=== PATIENT | female | born 1985 | race Caucasian/White ===

== ENCOUNTER → 2020-08-07 17:10 | Outpatient (BNVA) | payer SELFPAY | PROVIDERS: Visit Provider Registered Nurse | DX: F41.9 Anxiety disorder, unspecified (principal); F17.210 Nicotine dependence, cigarettes, uncomplicated | CPT/HCPCS: 80053; 85025 ==

== ENCOUNTER 2021-04-29 21:52 | Emergency (ER) | payer SELFPAY ==
[2021-04-29 21:59] VITALS: BP 113/79; PULSE 100; RESP 17; TEMP 36.3; O2SAT 99; BMI 19.5
--- NOTE | 2021-04-29 22:11 | USR_ITS ---
PROCEDURE INFORMATION: Exam: US Abdomen, Limited; Right Upper Quadrant Exam date and time: 04/29/2021 10:11 PM Age: 35 years old Clinical indication: Abdominal pain; Acute; Additional info: Abd pain TECHNIQUE: Imaging protocol: US abdomen. Real time ultrasound with image documentation. Limited exam focused on the right upper quadrant. COMPARISON: No relevant prior studies available. FINDINGS: Liver: Normal. No masses. Gallbladder: Gallbladder is somewhat prominent, however, is negative for cholelithiasis or gallbladder wall thickening to suggest cholecystitis. Common bile duct: Common bile duct somewhat prominent at 4 mm without obstructing lesion seen. Pancreas: Visualized pancreas is unremarkable. Right kidney: Normal. No mass. No hydronephrosis. US/US gall bladder [id number] IMPRESSION: 1. Gallbladder is somewhat prominent, however, is negative for cholelithiasis or gallbladder wall thickening to suggest cholecystitis. 2. Common bile duct somewhat prominent at 4 mm without obstructing lesion seen.
--- NOTE | 2021-04-29 22:12 | ED_ITS ---
HPI - Abdominal Pain General: Chief Complaint: Abdominal Pain Stated Complaint: Abd pain Time Seen by Provider: 04/29/21 21:57 Source: patient Mode of arrival: ambulatory Limitations: no limitations History of Present Illness: 35-year-old female states starting at 6 PM tonight started having diffuse abdominal cramping with nausea vomiting. States she had multiple episodes of vomiting in the some worsening cramping type pain in her lower and upper abdomen. She states that actually over the last 30 minutes its improved she no longer has any pain no history of any abdominal surgeries denies any sick contacts denies any diarrhea denies any fevers. Associated Symptoms: Reports nausea and vomiting; Denies chills, dysuria and fever(s) Review of Systems Const: Denies: fever(s), chills, body aches or change in appetite Eyes: Denies: blurry vision or eye discomfort ENMT: Denies: throat pain or dental pain Card: Denies: chest pain Resp: Denies: dyspnea GI: Reports: abdominal pain, nausea and vomiting : Denies: dysuria Musc: Denies: neck pain or back pain Skin/Breast: Denies: rash Neuro: Denies: headache(s) Psych: Denies: depression Macario/Lymph: Denies: easy bruising All/Imm: Denies: urticaria PFSH ED PFSH: Medical History (Updated 04/29/21 @ 23:31 by Maulik Samuels MD) Anxiety Surgical History No pertinent past surgical history Social History (Updated 08/07/20 @ 15:01 by Chico Kidd LPN) Smoking and tobacco status: current every day smoker Physical Exam Const: COMMON NORMALS: no acute distress, patient oriented x3 and healthy appearing HENMT: COMMON NORMALS: normocephalic and atraumatic HEAD & SCALP: normocephalic and atraumatic Eye: COMMON NORMALS: Equal, round and reactive pupils present and EOMs intact bilaterally PUPIL: Yes Equal, round and reactive pupils present Neck/C-Spine: COMMON NORMALS: full ROM and supple Chest: COMMONS NORMALS: normal inspection of the chest and normal palpation of entire chest wall Resp: COMMON NORMALS: normal respiratory effort, No retractions, No use of accessory muscles and clear to auscultation bilaterally AUSCULTATION: clear to auscultation bilaterally Cardio: COMMON NORMALS: regular rate, regular rhythm and No murmurs present (Cardio) RATE: regular rate RHYTHM: regular rhythm GI: COMMON NORMALS: Normal to inspection, nondistended, normoactive bowel sounds present, Soft to palpation, non-tender and no masses PALPATION: Yes Soft to palpation Extremity: COMMON NORMALS: normal to inspection and full ROM Neuro: COMMON NORMALS: patient oriented x3, moves all extremities and no focal motor deficits Psych: COMMON NORMALS: mental status grossly normal, Normal thought process present and cooperative THOUGHT PROCESS: Normal thought process present Skin: COMMON NORMALS: no rashes or lesions noted and no wounds GENERAL SKIN EXAM: no rashes or lesions noted Course Vital Signs: Vital signs: Vital Signs Temperature 97.4 F L 04/29/21 21:59 Pulse Rate 87 04/29/21 22:31 Respiratory Rate 18 04/29/21 22:31 Blood Pressure 104/57 04/29/21 22:31 Pulse Oximetry 97 04/29/21 22:31 MDM - Abdominal Pain Medical Decision Making Patient presents here with abdominal pain is since resolved does have an elevated white count could be due to stress of the vomiting. Ultrasound gallbladder showed no acute abnormalities I have discussed with her and offered a CT scan she is continue to have no pain here and abdominal exam is benign we will forego CT scan at this point we will start her on Zofran she is to drink fluids she is to follow-up with surgery outpatient she is return to ER if she has any pain or vomiting she understands and agrees to plan. Lab Data : 04/29/21 22:22 04/29/21 22:22 Labs/Radiology: Radiology Impressions Gallbladder Ultrasound 04/29/21 22:11 IMPRESSION: 1. Gallbladder is somewhat prominent, however, is negative for cholelithiasis or gallbladder wall thickening to suggest cholecystitis. 2. Common bile duct somewhat prominent at 4 mm without obstructing lesion seen. Laboratory Results WBC 19.7 10^3/uL (4.0-10.0) H 04/29/21 22:22 RBC 4.48 10^6/uL (4.1-5.3) 04/29/21 22:22 Hgb 13.5 g/dL (11.5-15.3) 04/29/21 22:22 Hct 39.8 % (37.0-47.0) 04/29/21: MCV 88.8 fl (81-99) 04/29/21: MCH 30.1 pg (28.0-34.0) 04/29/21: MCHC 33.9 g/dL (30.0-36.0) 04/29/21: RDW 11.8 % (12.1-15.1) L 04/29/21: Plt Count 237 10^3/cmm (130-400) 04/29/21: MPV 10.6 fL (7.4-10.4) H 04/29/21: Neut % (Auto) 90.8 % 04/29/21: Lymph % (Auto) 4.3 % 04/29/21: Towner % (Auto) 4.0 % 04/29/21: Eos % (Auto) 0.1 % 04/29/21: Baso % (Auto) 0.3 % 04/29/21: Neut # (Auto) 17.90 10^3/uL (1.8-7.7) H 04/29/21: Lymph # (Auto) 0.8 10^3/uL (0.8-4.8) 04/29/21: Towner # (Auto) 0.8 10^3/uL (0.2-0.9) 04/29/21: Eos # (Auto) 0.0 10^3/uL (0.0-0.8) 04/29/21: Baso # (Auto) 0.1 10^3/uL (0.0-0.1) 04/29/21: Nucleated RBC % (auto) 0 % 04/29/21: Nucleated RBCs # 0.0 /100WBC 04/29/21: Sodium 137 mmol/L (136-145) 04/29/21: Potassium 3.3 mmol/L (3.5-5.1) L 04/29/21: Chloride 102 mmol/L (98-107) 04/29/21: Carbon Dioxide 21 mmol/L (22-29) L 04/29/21: Anion Gap 17.3 (5-19) 04/29/21 22:22 BUN 12 mg/dL (6-20) 04/29/21 22: Creatinine 0.5 mg/dL (0.5-0.9) 04/29/21 22: GFR Calculation 140.4 mL/min (90-130) H 04/29/21 22: Glucose 129 mg/dL (65-115) H 04/29/21 22: Calculated Osmolality 285 mOsm/kg (285-295) 04/29/21 22: Calcium 9.5 mg/dL (8.5-10.5) 04/29/21 22: Total Bilirubin 0.3 mg/dL (0.15-1.2) 04/29/21: AST 14 U/L (0-32) 04/29/21: ALT 13 U/L (0-33) 04/29/21 22: Alkaline Phosphatase 51 IU/L (35-105) 04/29/21 22: Total Protein 6.8 g/dL (6.6-8.7) 04/29/21 22: Albumin 4.6 g/dL (3.5-5.2) 04/29/21: Globulin 2.2 g/dL (1.3-4.6) 04/29/21 22: Lipase 32 U/L (13-60) 04/29/21 22: HCG, Qual Negative (Negative) 04/29/21: Urine Color Yellow (Yellow) 04/29/21 22: Urine Appearance Clear (CLEAR) 04/29/21 22:22 Urine pH 8 (5-7) H 04/29/21 22:22 Ur Specific [place] 1.015 (1.005-1.030) 04/29/21 22: Urine Protein Neg (Negative) 04/29/21 22: Urine Glucose (UA) Norm (Normal) 04/29/21 22: Urine Ketones 2+ (Negative) H 04/29/21 22:22 Urine Blood Neg (Negative) 04/29/21 22:22 Urine Nitrate Negative (Negative) 04/29/21 22: Urine Bilirubin Neg (Negative) 04/29/21 22:22 Prot Sulfosalicylic Acd Negative (Negative) 04/29/21 22:22 Urine Urobilinogen Norm mg/dL (Negative) 04/29/21 22:22 Ur Leukocyte Esterase Negative (Negative) 04/29/21 22:22 Discharge Plan Discharge Patient Disposition: Home Clinical Impression: Vomiting Qualifiers: Vomiting type: unspecified Nausea presence: with nausea Qualified Code(s): R11.2 - Nausea with vomiting, unspecified Abdominal pain Qualifiers: Abdominal location: generalized Qualified Code(s): R10.84 - Generalized abdominal pain Condition: Stable Prescriptions: New ondansetron 4 mg tablet,disintegrating 4 mg PO Q6H PRN (Reason: nausea and vomiting) Qty: 14 0RF Discharge Orders: Discharge ED (Routine); Ordered 04/29/21 Ordered By: Maulik Samuels Discharge Diet: Advance as tolerated Discharge Activity: Resume usual activity Patient Instructions: Abdominal Pain (ED) Coding Level of Care Code ED Research Geneticist for [facility] Fwd Exam Comprehensive
[2021-04-29] MEDS: sodium chloride 0.9% 1,000 ML 999 ML IV ×2 (22:27→23:49)
[2021-04-29] MEDS: ondansetron 2 mg/ML SDV 2 mL 4 MG IVP (22:27)
[2021-04-29 22:30] LABS: Basophils # 0.1 10^3/uL (0.0-0.1); Basophils % 0.3 %; Eosinophils % 0.1 %; Hematocrit 39.8 % (37.0-47.0); Hemoglobin 13.5 g/dL (11.5-15.3); Lymphocytes # 0.8 10^3/uL (0.8-4.8); Lymphocytes % 4.3 %; Mean Corpuscular HGB Conc 33.9 g/dL (30.0-36.0); Mean Corpuscular Hemoglobin 30.1 pg (28.0-34.0); Mean Corpuscular Volume 88.8 fl (81-99); Mean Platelet Volume 10.6 fL (7.4-10.4); Monocytes # 0.8 10^3/uL (0.2-0.9); Neutrophils % 90.8 %; Nucleated Red Blood Cells % 0 %; Platelet Count 237 10^3/cmm (130-400); Red Blood Count 4.48 10^6/uL (4.1-5.3); Red Cell Distribution Width 11.8 % (12.1-15.1); White Blood Count 19.7 10^3/uL (4.0-10.0)
[2021-04-29 22:31] VITALS: BP 104/57; PULSE 87; RESP 18; O2SAT 97
[2021-04-29 22:32] LABS: Add Urine Microscopic? NO; Charge for UA Resulting for Rev
[2021-04-29 22:38] LABS: Bilirubin Urine Neg (Negative); Blood Urine Neg (Negative); Glucose Urine UA Norm (Normal); Ketones Urine 2+ (Negative); Leukocyte Esterase Urine Negative (Negative); Nitrate Urine Negative (Negative); Protein Urine Neg (Negative); Specific Gravity, Urine 1.015 (1.005-1.030); Sulfosalicylic Acid Urine Negative (Negative); Urine Appearance Clear (CLEAR); Urine Color Yellow (Yellow); Urobilinogen Urine Norm (Negative); pH Urine 8 (5-7)
[2021-04-29 22:45] LABS: HCG, Serum Qual Negative (Negative)
[2021-04-29 22:59] LABS: Alanine Aminotransferase 13 U/L (0-33); Albumin Level 4.6 g/dL (3.5-5.2); Alkaline Phosphatase 51 IU/L (35-105); Anion Gap 17.3 (5-19); Aspartate Amino Transferase 14 U/L (0-32); Blood Urea Nitrogen 12 mg/dL (6-20); Calcium 9.5 mg/dL (8.5-10.5); Carbon Dioxide 21 mmol/L (22-29); Chloride 102 mmol/L (98-107); Globulin 2.2 g/dL (1.3-4.6); Glomerular Filtration Rate 140.4 mL/min (90-130); Glucose 129 mg/dL (65-115); Lipase 32 U/L (13-60); Osmolality Calculated 285 mOsm/kg (285-295); Potassium 3.3 mmol/L (3.5-5.1); Sodium 137 mmol/L (136-145); Total Bilirubin 0.3 mg/dL (0.15-1.2); Total Protein 6.8 g/dL (6.6-8.7)
[2021-04-30 00:46] VITALS: BP 118/70; PULSE 97; RESP 18; TEMP 36.8; O2SAT 97
--- NOTE | 2021-05-05 11:59 | DCPLANNER ---
Addendum entered by Elke Ferrell 05/11/21 08:25: manager massage department was contacted by general surgery stating that when clinic called patient to schedule a follow up appointment, that patient declined appointment at this time. Original Note: manager massage department had message to schedule a follow up appointment for patient with general surgery. manager massage department emailed patients information to both Tricia and Desi at [facility] General Surgery / ENT clinic. Patients information will be printed and reviewed. Clinic will call patient with appointment information.
== END 2021-04-30 00:48 | disposition home or self-care (01) ==
PROVIDERS: Emergency Provider Emergency Medicine
DX: R10.84 Generalized abdominal pain (principal); R11.2 Nausea with vomiting, unspecified; F17.210 Nicotine dependence, cigarettes, uncomplicated
CPT/HCPCS: 76705; 80053; 81003; 83690; 84703; 85025; 96361; 96374; 99284; J2405; J7030